=== PATIENT | female | born 1990 | race Caucasian/White ===

== ENCOUNTER 2017-01-07 13:23 | Emergency (ER) | payer OTHER ==
[~2017-01-07] VITALS: Ht 175.3 cm; Wt 102.1 kg
[~2017-01-07 13:23] MED LIST: ONDA4TAB7 PO
[2017-01-07 13:30] VITALS: BP 138/63
--- NOTE | 2017-01-07 13:49 | PHYS DOC ---
Past Medical History Past Medical History: Depression Additional Past Medical Histor: Inflammation in L ft bone marrow Past Surgical History: No Surgical History Alcohol Use: Rarely Drug Use: Marijuana Adult General Chief Complaint Chief Complaint: EYE PROBLEMS HPI HPI Patient is a 26 year old female presents to the emergency department stating that approximately one hour ago she was trying to take her contact lens was out of her and she developed severe pain and discomfort. She states the right is greater than the left. Patient states that she has blurry vision out of the left however she is having increased difficulty opening and closing her eyelids. Patient states that she is unsure when her last tetanus immunization occurred. She denies any fever, chills or any nausea vomiting. Review of Systems Review of Systems Constitutional: Denies fever or chills [] Eyes: Denies change in visual acuity, Bilateral redness, or eye pain right > left HENT: Denies nasal congestion or sore throat [] Respiratory: Denies cough or shortness of breath [] Cardiovascular: No additional information not addressed in HPI [] GI: Denies abdominal pain, nausea, vomiting, bloody stools or diarrhea [] : Denies dysuria or hematuria [] Musculoskeletal: Denies back pain or joint pain [] Integument: Denies rash or skin lesions [] Neurologic: Denies headache, focal weakness or sensory changes [] Endocrine: Denies polyuria or polydipsia [] Current Medications Current Medications Current Medications Medications (Trade) Dose Ordered Sig/[facility] Start Time Stop Time Status Last Admin Dose Admin Fluorescein Sodium (Ful-Mary) 1 strip 1X ONCE 01/07/17 14:00 01/07/17 14:01 DC 01/07/17 13:58 1 STRIP Tetracaine HCl (Tetracaine) 1 drop 1X ONCE 01/07/17 14:00 01/07/17 14:01 DC 01/07/17 13:58 1 DROP Allergies Allergies Allergies Coded Allergies Type Severity Reaction Last Updated Verified No Known Drug Allergies 03/22/16 No Physical Exam Physical Exam Constitutional: Well developed, well nourished, no acute distress, non-toxic appearance. [] HENT: Normocephalic, atraumatic, bilateral external ears normal, oropharynx moist, no oral exudates, nose normal. [] Eyes: PERRLA, EOMI, conjunctiva normal, clear discharge. [] Neck: Normal range of motion, no tenderness, supple, no stridor. [] Cardiovascular:Heart rate regular rhythm, no murmur [] Lungs & Thorax: Bilateral breath sounds clear to auscultation [] Skin: Warm, dry, no erythema, no rash. [] Back: No tenderness Extremities: No tenderness, no cyanosis, no clubbing, ROM intact, no edema. [] Neurologic: Alert and oriented X 3, normal motor function, normal sensory function, no focal deficits noted. [] Psychologic: Affect normal, judgement normal, mood normal. [] Current Patient Data Vital Signs Vital Signs Date Time Temp Pulse Resp B/P (MAP) Pulse Ox O2 Delivery O2 Flow Rate FiO2 01/07/17 13:30 98.2 92 18 100 Room Air 98.2 EKG EKG [] Radiology/Procedures Radiology/Procedures [] Course & Med Decision Making Course & Med Decision Making Pertinent Labs and Imaging studies reviewed. (See chart for details) Patient was noted to be very dramatic during her emergency Department visit. Patient did have tetracaine placed in bilateral eyes in which she states that they eyes felt better however she still continued to cry and hyperventilate. Patient was unable to provide a visual acuity as she was unwilling to open her eyes. Patient did have her eyes washed out after eye exam with forcing. Patient did have tetracaine placed into her eyes bilaterally. Minimal fluorescein uptake was noted. Patient had her eyes irrigated with eye wash station. Patient will be discharged home with recommendations to follow-up with ophthalmology tomorrow. She has her own admissions advisor however will be provided with the name of ours as well. Patient will be encouraged to use her tramadol as she has a home for pain and discomfort. Patient was also encouraged to use Tylenol or ibuprofen. Patient will also be placed on ofloxacin eyedrops. Patient will be discharged home in stable condition signs and symptoms to return back to emergency department has been provided. [] Dragon Disclaimer Dragon Disclaimer This electronic medical record was generated, in whole or in part, using a voice recognition dictation system. Departure Departure Impression: Primary Impression: Eye pain Disposition: HOME, SELF-CARE Condition: STABLE Referrals: UNKNOWN PCP NAME (PCP) MELITON VALENTIN MD Patient Instructions: Eye - Corneal Abrasion, [id number] Additional Instructions: Activity as tolerated. Medications as prescribed Avoid bright lights. Wear sunglasses when outside. You stated you have tramadol at home he may take this for pain and discomfort as well. Eyedrops as prescribed. Do not place your contact lenses in until you have followed up with her admissions advisor. Follow-up with your admissions advisor tomorrow. We have also provided to with the name of an admissions advisor as well. Return back to emergency prior signs symptoms of become worse. Scripts Ofloxacin (OCUFLOX) 5 Ml Drops 1-2 DROP OU BID, #[address] in bilateral eyes for the next 5-7 days. Prov: ADRIAN DOS SANTOS APRN 01/07/17 ADRIAN DOS SANTOS APRN Jan 07, 2017 13:49
[2017-01-07] MEDS ORDERED: FLUORESCEIN OPHTH TEST STRIP. OU ONE ×2 (14:00)
[2017-01-07] MEDS ORDERED: TETRACAINE 0.5% OPHTH SOLUTION 4ML BOTTLE. OU ONE (14:00)
[2017-01-07] MEDS ORDERED: OFLO5DRO OU (14:15)
[2017-01-07] MEDS ORDERED: ALPR0.5T PO (19:51)
== END 2017-01-07 14:23 | disposition home or self-care (01) ==
LOC: ER 13:23
DX: H57.13 Ocular pain, bilateral (principal); F32.9 Major depressive disorder, single episode, unspecified
CPT/HCPCS: 99283

== ENCOUNTER 2017-01-07 17:27 | Emergency (ER) | payer OTHER ==
[~2017-01-07 17:27] MED LIST changes: +OFLO5DRO OU
[2017-01-07 19:09] VITALS: BP 120/78
[2017-01-07] MEDS ORDERED: MORPHINE SULFATE 10 MG/ML VIAL. IM ONE (19:45)
[2017-01-07] MEDS ORDERED: ALPRAZolam 0.5 MG TABLET PO ONE (19:45)
[2017-01-07] MEDS ORDERED: ALPR0.5T PO (19:51)
--- NOTE | 2017-01-07 19:51 | PHYS DOC ---
Past Medical History Past Medical History: Depression Additional Past Medical Histor: Inflammation in L ft bone marrow Past Surgical History: No Surgical History Alcohol Use: Rarely Drug Use: Marijuana Adult General Chief Complaint Chief Complaint: EYE PROBLEMS [facility] Patient is a 26 year old female patient presenting today with bilateral eye pain. Patient was seen at 1 PM today for the same complaint. She was diagnosed with corneal abrasion from contact lens crutches. Patient returns this evening with the family. Mother is asking me to" put an IV in and knoch her out for couple hours" because patient is still in pain and crying. Patient states she has not been diagnosed officially with anxiety or depression but she believes she has both. Patient denies any new injuries. She states her pain is still the same. She states she cannot open her eyes due to pain. Family states they already called her own fiscal accountant who will follow-up with the patient tomorrow. Patient appears to be hyperventilating. Review of Systems Review of Systems Constitutional: Denies fever or chills [] Eyes: Bilateral eye pain HENT: Denies nasal congestion or sore throat [] Respiratory: Denies cough or shortness of breath [] Cardiovascular: No additional information not addressed in HPI [] GI: Denies abdominal pain, nausea, vomiting, bloody stools or diarrhea [] : Denies dysuria or hematuria [] Musculoskeletal: Denies back pain or joint pain [] Integument: Denies rash or skin lesions [] Neurologic: Denies headache, focal weakness or sensory changes [] Psych:Patient appears to be hyperventilating she is anxious and restless Current Medications Current Medications Current Medications Medications (Trade) Dose Ordered Sig/[facility] Start Time Stop Time Status Last Admin Dose Admin Alprazolam (Xanax) 0.5 mg 1X ONCE 01/07/17 19:45 01/07/17 19:46 Morphine Sulfate 5 mg 1X ONCE 01/07/17 19:45 01/07/17 19:46 Allergies Allergies Allergies Coded Allergies Type Severity Reaction Last Updated Verified No Known Drug Allergies 03/22/16 No Physical Exam Physical Exam Constitutional: Well developed, well nourished, no acute distress, non-toxic appearance. [] HENT: Normocephalic, atraumatic, bilateral external ears normal, oropharynx moist, no oral exudates, nose normal. [] Eyes: Vision exam is fairly difficult because patient will not open her eyes. Both eyes still have florescence stain. SHARON MAGANA, I was able to take a slight view on bilateral globe i did not see any acute findings though patient squinted alot and was resisting exam. Neck: Normal range of motion, no tenderness, supple, no stridor. [] Cardiovascular:Heart rate regular rhythm, no murmur [] Lungs & Thorax: Bilateral breath sounds clear to auscultation [] Abdomen: Bowel sounds normal, soft, no tenderness, no masses, no pulsatile masses. [] Skin: Warm, dry, no erythema, no rash. [] Back: No tenderness, no CVA tenderness. [] Extremities: No tenderness, no cyanosis, no clubbing, ROM intact, no edema. [] Neurologic: Alert and oriented X 3, normal motor function, normal sensory function, no focal deficits noted. [] Psychologic: Affect normal, judgement normal, mood normal. [] EKG EKG [] Radiology/Procedures Radiology/Procedures [] Course & Med Decision Making Course & Med Decision Making Pertinent Labs and Imaging studies reviewed. (See chart for details) Patient is in the ED with bilateral eye pain. She was seen at 1 PM today was diagnosed with corneal abrasion from contact lenses and was discharged with Oflaxacin. She has an appointment with her fiscal accountant tomorrow. She is back in the ED crying and hyperventilating due to the pain. She was noted to be hyperventilating previously at 1 PM as well. She states she believes she has anxiety and depression but she does not take anything for it. Visual exam was very difficult because she is restless and would not keep her eyes open. Her mother was requesting we "put an IV and knock her out for a couple hours". Informed family that is not the best plan it has consequences including and it is not a risk we would like to undertake. I gave her a shot of morphine and one tablet of Xanax. Discharge her with instructions to continue taking Ultram which she has at home for her pain. Instructed to use the antibiotic eye medication she was given earlier. Instructed to follow-up with her fiscal accountant tomorrow. I did give her a prescription for 4 tablets of xanax. I also recommended following up with her own PCP or [facility] [place] for anxiety and depression Lili Disclaimer Lili Disclaimer This electronic medical record was generated, in whole or in part, using a voice recognition dictation system. Departure Departure Impression: Primary Impression: Eye pain Additional Impressions: Anxiety attack Hyperventilation syndrome Disposition: HOME, SELF-CARE Condition: STABLE Referrals: UNKNOWN PCP NAME (PCP) Follow-up with your eye doctor tomorrow Patient Instructions: Anxiety and Panic Attacks, Eye - Corneal Abrasion, Hyperventilation Additional Instructions: You were seen for ongoing bilateral eye pain from corneal abrasions. Please follow-up with your fiscal accountant tomorrow morning. Please take the Ultram you have at home as needed for pain. Please use the medication/antibiotic medicine for your eyes as prescribed. Try and stay in a dark room. Take the Xanax as needed for anxiety. Consider seeing your primary care doctor for anxiety or [facility]. Scripts Alprazolam (XANAX) 0.5 Mg Tablet 1 TAB PO TID, #3 TAB Prov: GRACE MONREAL APRN 01/07/17 Problem Qualifiers Primary Impression: Eye pain Laterality: bilateral Qualified Codes: H57.13 - Ocular pain, bilateral GERALDOGRACE VILLELA CONE FORMER Jan 07, 2017 19:51
== END 2017-01-07 20:29 | disposition home or self-care (01) ==
LOC: ER 17:27
DX: H57.13 Ocular pain, bilateral (principal); F41.9 Anxiety disorder, unspecified; F45.8 Other somatoform disorders; F32.9 Major depressive disorder, single episode, unspecified
CPT/HCPCS: 96372; 99283; J2270